=== PATIENT | female | born 1950 | race Caucasian/White ===

== ENCOUNTER 2018-06-09 08:38 | Outpatient (CLI) | payer BC | END 2018-06-09 08:39 | disposition home or self-care (01) | LOC: BICMAMMO 08:38 | PROVIDERS: ATTEND Obstetrics & Gynecology | DX: Z12.31 Encounter for screening mammogram for malignant neoplasm of breast (principal) | CPT/HCPCS: 77063; 77067 ==

== ENCOUNTER 2019-03-23 09:02 | Day surgery (SDC) | payer BC ==
[2019-03-16 11:38] VITALS: BMI 23.6
[2019-03-16 12:44] LABS: Hemoglobin 14.5 g/dL (12.0-16.0); Mean Corpuscular HGB CONC 33.3 g/dL (32.0-36.0); Mean Corpuscular Hemoglobin 32.4 pg (27.0-31.0); Mean Corpuscular Volume 97.4 fL (78.0-98.0); Mean Platelet Volume 8.9 fL (7.4-10.4); Platelet Count 175 thou/uL (130-400); RBC Distribution Width 11.8 % (11.5-14.5); Red Blood Cell (RBC) Count 4.47 mill/uL (4.20-5.40)
--- NOTE | 2019-03-17 08:08 | HP ---
She is set for surgery, would be March 23. HISTORY OF PRESENT ILLNESS: Ms. Claudio is a 68-year-old white female, G0, who has been having some intermittent vaginal spotting. She originally presented in July 2018 with vaginal bleeding that was felt most likely due to recent hormone replacement therapy, initiation by another physician. She was seen in my office for evaluation and she had an endometrial thickness of 13 mm. I did an endometrial biopsy at that time which showed benign proliferative changes, no malignancy or hyperplasia was noted. She was recommended to stop her estrogen hormone replacement therapy and has been continuing low-dose progesterone, micronized progesterone 200 mg tablet at bedtime. The patient had developed some cardiac issues with atrial fibrillation and has been ongoing evaluation by a material attendant for the past few months with now resolution of that problem and she basically reported not having any further heavy bleeding, but does have some intermittent light spotting. She has been off the estrogen replacement therapy and continues the progesterone only. She also takes Premarin vaginal cream 0.5 g twice a week, vaginal route. She has a significant history of previous colectomy in 1966 for ulcerative colitis, which has been without any evidence of disease since removal of her colon many years ago. She does have a history of laparoscopies x2 in 1990 and 1991 for adhesions and possible endometriosis, but mainly adhesions. She had a D and C in 1966, colostomy in 1978 with removal of one of her ovaries and she is not sure which one. She does have hypothyroidism and recently had atrial fibrillation, which has now been spontaneously resolved and is on Toprol for this. CURRENT MEDICATIONS: 1. Famciclovir 250 mg tablet t.i.d. p.r.n. 2. Fenofibrate 145 mg daily for hyperlipidemia. 3. Toprol 25 mg extended release daily. 4. Nature-Throid 16.25 mg tablet daily. 5. Prednisone 10 mg tablet daily. 6. Premarin cream 0.625 g to 0.5 g twice a week vaginally. 7. Progesterone 200 mg capsule at bedside. ALLERGIES: SHE HAS ALLERGIES TO CODEINE, CORTISONE, AND MORPHINE, REPORTED ANAPHYLAXIS TO MORPHINE. FAMILY HISTORY: Breast cancer, lung cancer, diabetes, coronary heart disease. SOCIAL HISTORY: Former smoker, last used over a year ago. No excessive alcohol use. She is . PHYSICAL EXAMINATION: VITAL SIGNS: 5 feet 3 inches, weight 133, BMI 23.6, blood pressure 132/80, pulse 73 and regular, respirations 18, O2 saturations 98%. HEENT: Within normal limits. CHEST: Clear to auscultation. HEART: Regular rate and rhythm. S1 and S2 heart sounds. No murmurs, rubs, or gallops. ABDOMEN: Soft, nontender, and nondistended. She has an ostomy bag in the right lower quadrant from previous colectomy. Stoma site pink and looks healthy. PELVIC: Vulva and vagina had no lesions. Cervix had no lesions. Uterus, small and nontender. Adnexa, nontender with no masses. ASSESSMENT: This is a 68-year-old white female, G0 with intermittent light vaginal spotting, most recent EMB approximately 7 months ago that was benign. Heavy bleeding has resolved. She continues to have light spotting intermittently. PLAN: Plan is to proceed with diagnostic hysteroscopy with D and C. possible polyp removal is encountered. Risks and benefits of the procedure have been discussed in detail, she is set for surgery on 03/23. Job ID: [id number]
[2019-03-23] MEDS ORDERED: Midazolam HCl 2 mg/2 ml Vial ONE (10:18)
[2019-03-23] MEDS ORDERED: Fentanyl 100 MCG/2 ML VIAL ONE ×3 (10:18→12:25)
[2019-03-23] MEDS ORDERED: Promethazine HCl 25 MG/ML VIAL SLOW IVP PRN (11:48)
[2019-03-23] MEDS ORDERED: Promethazine HCl 25 MG/ML VIAL IM PRN (11:48)
[2019-03-23] MEDS ORDERED: Ondansetron HCl/PF 4 MG/2 ML Vial IVP PRN (11:48)
[2019-03-23] MEDS ORDERED: Hydrocortisone Sod Succ/PF 100 mg/2 ml Vial ONE (16:38)
[2019-03-23] MEDS ORDERED: Ondansetron PF 4 MG/2 ML Vial ONE (16:38)
[2019-03-23] MEDS ORDERED: Lidocaine 1% PF 5 ML VIAL ONE (16:38)
[2019-03-23] MEDS ORDERED: PROPOFOL 200 MG/20 ML VIAL ONE (16:38)
--- NOTE | 2019-03-23 16:55 | OP ---
DATE OF PROCEDURE: 03/23/2019 PREOPERATIVE DIAGNOSES: 1. A 68-year-old white female, G0 with postmenopausal bleeding. 2. Cervical stenosis. POSTOPERATIVE DIAGNOSES: 1. A 68-year-old white female, G0 with postmenopausal bleeding. 2. Cervical stenosis. 3. Inadvertent uterine perforation. ANESTHESIA: General, LMA. ANTIBIOTICS: 2 g Ancef on-call to OR. FINDINGS: 1. Atrophic vaginal mucosa with atrophic appearing small cervix with pinpoint opening of the cervix noted. No other lesion seen. Uterus was midline, nontender, and small. 2. On an initial hysteroscopy, evidence of uterine perforation. Therefore, hysteroscopy procedure was aborted and a D and C was carried out. PATHOLOGY: None. COMPLICATIONS: Inadvertent uterine perforation. Appears to be hemodynamically stable. DESCRIPTION OF PROCEDURE: The patient previously received informed consent in regard to surgery. She was taken back to the operating room, where she received a general with LMA. She was placed in dorsal lithotomy position with the use of Keith. She was then prepped and draped in usual sterile fashion. At this time, in and out catheterization of bladder was performed. Exam under anesthesia was performed. Initially a curved small [place] with a weighted speculum was placed in the size of the weighted speculum was somewhat too large for her vaginal introitus due to her menopausal state. We then located a small Jeffery pediatric speculum, which enabled us to isolate the cervix with no excessive tugging on her vaginal introitus. The cervix was grasped with a tenaculum posteriorly. The os of the cervix was very attenuated and atrophic. What appeared to be a cervical os opening was identified, hemostat was placed and this was distended and some cervical mucus returned. I then asked for the nasolacrimal duct dilators due to the stenosis and postmenopausal state of the patient's cervix. A small nasolacrimal duct dilator was placed through the observed cervical opening with gentle force. Then, it arleen sized, the nasolacrimal duct dilator was placed. Then, a size 9 mm Steve dilator was placed. Serial dilation was carried out, letting the each dilator set for a while to help open the cervical opening. We then proceeded to a size 16 Steve dilator. A 5 mm diagnostic scope was then assembled. I placed a diagnostic scope through the cervical os and on entry into the presumed uterine cavity, it appeared the uterine perforation had occurred as I did visualize what appeared to be some small bowel through the fundus region. Due to the likelihood of uterine perforation, the procedure was stopped. I had not used any sharp instruments and therefore the plan is to observe the patient for several hours for any evidence of bleeding or unusual discomfort or pain. The tenaculum and speculum had been removed. All the instrument count was correct. The patient was undraped and transferred to recovery room in stable condition. Job ID: [id number]
== END 2019-03-23 14:40 | disposition home or self-care (01) ==
LOC: SDC 09:02 → EEVIPCON 11:15 → SDC 14:40
PROVIDERS: ATTEND Obstetrics & Gynecology
PROC: 0UDB8ZZ Extraction of Endometrium, Via Natural or Artificial Opening Endoscopic (ICD-10-PCS; principal; 2019-03-23)
DX: N95.0 Postmenopausal bleeding (principal); N88.2 Stricture and stenosis of cervix uteri; N28.89 Other specified disorders of kidney and ureter; Z79.899 Other long term (current) drug therapy; Z87.891 Personal history of nicotine dependence; Z88.5 Allergy status to narcotic agent; Z88.8 Allergy status to other drugs, medicaments and biological substances; Z91.013 Allergy to seafood
CPT/HCPCS: 36415; 85027; 86850; 86900; 86901; J0690; J2250; J3010